=== PATIENT | male | born 1975 | race Caucasian/White ===

== ENCOUNTER 2018-09-17 10:50 | Inpatient (IN) | payer SELFPAY ==
[~2018-09-17] VITALS: Ht 182.9 cm; Wt 86.1 kg
[2018-09-17 12:03] LABS: HEMATOCRIT 49.2 % (42.0-52.0); HEMOGLOBIN 16.9 g/dl (13.5-17.5); MEAN CORPUSCULAR HEMOGLOBIN 33.3 pg (27.0-33.0); MEAN CORPUSCULAR HGB CONC 34.3 g/dl (32.0-36.5); MEAN CORPUSCULAR VOLUME 96.9 fl (80.0-96.0); PLATELET COUNT, AUTOMATED 294 10^3/uL (150-450); RED BLOOD COUNT 5.08 10^6/uL (4.30-6.10); WHITE BLOOD COUNT 10.3 10^3/uL (4.0-10.0)
[2018-09-17 12:30] LABS: ACETAMINOPHEN LEVEL < 2.0 UG/ML (10.0-30.0); ALBUMIN 3.6 GM/DL (3.2-5.2); ALT/SGPT 19 U/L (12-78); BILIRUBIN,DIRECT 0.1 MG/DL (0.0-0.2); BILIRUBIN,TOTAL 0.4 MG/DL (0.2-1.0); BLOOD UREA NITROGEN 16 MG/DL (7-18); CALCIUM LEVEL 8.6 MG/DL (8.5-10.1); CARBON DIOXIDE LEVEL 20 MEQ/L (21-32); CHLORIDE LEVEL 110 MEQ/L (98-107); CREATININE FOR GFR 0.94 MG/DL (0.70-1.30); ETHYL ALCOHOL (ETHANOL) < 0.003 % (0.000-0.010); GLOMERULAR FILTRATION RATE > 60.0 (>60); GLUCOSE, FASTING 96 MG/DL (70-100); POTASSIUM SERUM 4.1 MEQ/L (3.5-5.1); SALICYLATE LEVEL 3.8 MG/DL (5.0-30.0); SODIUM LEVEL 139 MEQ/L (136-145); TOTAL PROTEIN 7.4 GM/DL (6.4-8.2)
[2018-09-17] MEDS ORDERED: NICOTINE 21MG/24HR 1 EA TRANSDERMAL TD ONE (13:00)
[2018-09-17 14:25] LABS: AMPHETAMINES LEVEL URINE NEGATIVE (NEGATIVE); BARBITURATES URINE NEGATIVE (NEGATIVE); BENZODIAZEPINES URINE NEGATIVE (NEGATIVE); CANNABINOIDS URINE POSITIVE (NEGATIVE); COCAINE METABOLITE URINE NEGATIVE (NEGATIVE); METHADONE URINE NEGATIVE (NEGATIVE); OPIATES URINE NEGATIVE (NEGATIVE); PHENCYCLIDINE URINE NEGATIVE (NEGATIVE)
[2018-09-17] MEDS ORDERED: ALPRAZolam 0.5 MG TAB PO ONE (14:45)
[2018-09-17] MEDS ORDERED: MAALOX 30 ML SUSP *UDC PO PRN (15:45)
[2018-09-17] MEDS ORDERED: traZODone 50 MG TAB PO PRN (15:45)
[2018-09-17] MEDS ORDERED: MOM 30ML SUSPENSION UDC PO PRN (15:45)
[2018-09-17] MEDS ORDERED: ACETAMINOPHEN TAB 650MG DOSE (2X325MG) PO PRN (15:45)
[2018-09-17 17:04] VITALS: BP 130/84
[2018-09-18] MEDS: NICOTINE 21MG/24HR 1 EA TRANSDERMAL TD SCH (08:47)
--- NOTE | 2018-09-18 15:05 | MHHPEPDOC ---
General Date Of Admission: September 18, 2018 Legal Status: 9.39 Chief Complaint I am depressed and attempted to commit suicide ". History of Present Illness HISTORY OF THE PRESENT ILLNESS: Patient is a 42 -year-old , male, who has been dealing with depression his entire life and more recently, anxiety attacks.. He states he tried to get treatment over 11 years ago, but was unable to afford medications. He states that this past . His landlord told him that he had to live with other people in the landlord's family, particularly his daughter and her boyfriend and their child. He states because of this he got ill and couldn't feel firing. No solution. He said he would either have to drive away or do himself in. He states he took a cord to hang himself but called his sister.He went To his sister's house and they drove to the hospital parking lot. When home, he did not sleep. He was still anxious and called his sister saying "I need help". He states since winter where he is not been working. He has let everything go. He is becoming isolated. He has not cleaned up and has left his apartment a mess. 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 He is concerned that because he is in the hospital that he might lose his job. Lives alone and likes to be alone. However, he does go fishing with his landlord, who was in high school with him. He was educated to the 11th grade. He does not drink, but does use marijuana. His legal history is negative. He was never . No psychiatric history except what was mentioned and has never been hospitalized or remembers being on any significant medications. His medical history is negative. His neurological history is negative. His parents are not alive but he has 3 sisters and a brother. He has been waking in the middle the night since winter and feels he has hit bottom. Psychiatric Review of Systems Depression (2 or more weeks): depressed mood, anhedonia, insomnia/hypersomnia, feelings of worthlesness, decreased energy, difficulty concentrating, appetite changes, suicidal thoughts Nicky (4 or more days of): denies Psychosis: denies PTSD: denies Anxiety: panic attacks Anxiety/ 6 months or more of: difficulty concentrating, sleep disturbance Past Psychiatric History Previous Psychiatric Diagnosis: Depression Previous Psychiatric Admissions: None. Suicide Attempts:. Thoughts only. Psychiatric Follow-up: None. Psychiatric medications: None. Past Medical History Head Injury: No Seizures: No Hospitalizations: No Surgeries: No Family Medical/Psychiatric HX Psychiatric Disorders: No Addiction: No Suicide Attemps/Completions: No Addiction History denies Social History Childhood: Noncontributory. Abuse/Trauma: Noncontributory. Current Living Situation: Lives alone but we'll be getting roommates. Education: 11 grade. 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 Legal: Negative Marital:, Never . Mental Status Examination General Appearance: unkempt Build: thin Demeanor: guarded Eye Contact: average Activity: slowed Behavior: cooperative Speech: clear Mood: depressed, anxious Mood Sad Affect: constricted, flat, anxious Thought Process: logical/linear Thought Content (Delusions): none reported Thought Content (Other): none reported Thought Content (Aggressive): none reported Perception (Hallucinations): none reported Perception (Other): none reported Cognition (Impairment of): attention/concentration Cognition(Intelligence Est.): average Oriented: Oriented times three Insight: fair Judgment: Fair Psychosis: Denies Diagnoses Major depressive illness A-FIB/CHADSVASC A-FIB History Current/History of A-Fib/PAF?: No Current Oral Anticoagulant The: No Treatment Treatment ordered: NONE Initial Treatment Plan 1. Patient was admitted on a [9.39] status. 2. Complete history was obtained. 3. With patients permission, family will be contacted and database will be expanded. 4. Patients medication regimen will be reviewed and changed accordingly. 5. Patient will be provided with protected environment. 6. Patient will be treated with individual, group, and milieu therapies. 7. Patient will receive supportive psych-education. 8. Discharge planning will commence immediately. 9. Outpatient follow-up treatment will be strongly recommended. 10. The initial treatment plan will focus initially on: * Depression. * Risk for suicide. * Substance abuse. ESTIMATED LENGTH OF STAY: - DAYS. TIME SPENT COUNSELING AND COORDINATING INITIAL CARE: minutes. Vital Signs Vital Signs Date Time Temp Pulse Resp B/P (MAP) Pulse Ox O2 Delivery O2 Flow Rate FiO2 09/17/18 17:04 99.0 85 20 130/84 (99) 09/17/18 13:24 96 09/17/18 11:14 Room Air Medications No Active Prescriptions or Reported Meds Allergies Coded Allergies: No Known Allergies (Unverified , 09/17/18) YENNY RUDD MD September 18, 2018 15:01
--- NOTE | 2018-09-18 15:07 | HPEPDOC ---
General Date of Admission September 17, 2018 at 15:37 Attending Physician: MARY STANTON MD Chief Complaint The patient is a 42-year-old male admitted with a reason for visit of Depressive Disorder. History of Present Illness Patient is a 42-year-old male, patient presented to the hospital on account of feeling like he hit rock bottom. Recent activities and events in his life made him feel overwhelmed and set him over the edge. He expressed thoughts like wanting to put a noose around his neck to hang himself.. Patient was admitted on account of depression, hopelessness and helplessness. On assessment, he states he had stopped taking his antidepressant medications because to were too expensive. He reports his mother in 2004 and at that time he started having anxiety and panic attacks. He denies any prior medical history. He denies any symptoms of chest pain, shortness of breath, weakness, dizziness, nausea or vomiting Home Medications No Active Prescriptions or Reported Meds Allergies Coded Allergies: No Known Allergies (Unverified , 09/17/18) Past Medical History Medical History Depression. Anxiety Family History Parents with emphysema Social History * Smoker: greater than 1 pack/day Alcohol: Denies Drugs: marijuana Psychosocial History: Anxiety, Depression, Emotional problems A-FIB/CHADSVASC A-FIB History Current/History of A-Fib/PAF?: No Current Oral Anticoagulant The: No Review of Systems Other systems A 10 point pertinent ROS was completed, negative except as stated in the HPI Physical Examination Other physical findings GENERAL: dishevlled looking middle aged male, cachetic SKIN : Warm, dry intact HEENT: Atraumatic, normocephalic, PERRL, moist mucous membrane CARDIOVASCULAR: Regular rate and rhythm, S1S2, no JVD, no edema, distal pulses + and palpable RESP: CTAB, no accessory muscle use noted ABDOMEN: BS+ non distended non tender MS: no joint deformities NEURO: Alert and oriented x 3, CN2-12 grossly intact PSYCH: flat affect Vital Signs Vital Signs Date Time Temp Pulse Resp B/P (MAP) Pulse Ox O2 Delivery O2 Flow Rate FiO2 09/17/18 17:04 99.0 85 20 130/84 (99) 09/17/18 13:24 96 09/17/18 11:14 Room Air Assessment/Plan Suicidal ideation Polysubstance abuse Nicotine dependence Plan Evaluation and management by primary team. At this time patient has no acute medical problems or underlying comorbidities requiring active follow-up. Medical team will sign off, please re-consult as needed. Plan / VTE VTE Prophylaxis Ordered?: No VTE Exclusion Mechanical Proph: Low Risk for VTE NAILA CONWAY September 18, 2018 15:07
[2018-09-18 18:31] VITALS: BP 134/86
[2018-09-19 06:43] VITALS: BP 126/83
[2018-09-19] MEDS: NICOTINE 21MG/24HR 1 EA TRANSDERMAL TD SCH (08:34)
--- NOTE | 2018-09-19 16:09 | MHIPNPDOC ---
[facility] Progress Note Progress Note DATE OF SERVICE: 09/19/18 HISTORY: 42-year-old with severe depression. VITAL SIGNS: See below. NEW TEST RESULTS: None. CURRENT MEDICATIONS: See below. MENTAL STATUS EXAMINATION: Patient is a 42-year old male, who is, severely depressed. Speech: Is, normal. Language skills are. Normal. Thought processes including:'s sad and suicidal. Thought content:, As above. Abstract reasoning, and computation:, We'll to abstract. Description of associations: Loose. Description of abnormal or psychotic thoughts:. No psychotic thought. Judgment:, Poor. Insight:, Poor. Orientation: Full. Recent and remote memory: Intact. Attention span and concentration:. Poor. Language: As above. Fund of knowledge:full Mood: Sad. Affect:, Flat. DIAGNOSES: 1., Major depressive illness. 2., Job Stress. ASSESSMENT: 42-year-old with significant depression MANAGEMENT PLAN: Begin antidepressant treatment and counseling. TIME SPENT: 30 minutes. Vital Signs Vital Signs Date Time Temp Pulse Resp B/P (MAP) Pulse Ox O2 Delivery O2 Flow Rate FiO2 09/19/18 06:43 96.3 100 16 126/83 (97) 09/17/18 13:24 96 09/17/18 11:14 Room Air Current Medications Current Medications Acetaminophen (Tylenol Tab) 650 mg Q6HP PRN PO HEADACHE or DISCOMFORT; Start 09/17/18 at 15:45 Al Hydrox/Mg Hydrox/Simethicone (Mylanta) 30 ml Q4HP PRN PO HEARTBURN/INDIGESTION; Start 09/17/18 at 15:45 Home Med (Med Rec Complete!) ASDIRECTED XX ; Start 09/17/18 at 11:45; Stop 09/17/18 at 11:45; Status DC Magnesium Hydroxide (Milk Of Magnesia) 30 ml DAILYPRN PRN PO CONSTIPATION; Start 09/17/18 at 15:45 Nicotine (Nicoderm Cq 21mg) 1 patch DAILY TD Last administered on 09/19/18at 08:34; Start 09/18/18 at 09:00 Trazodone HCl (Desyrel) 50 mg QHSP PRN PO INSOMNIA; Start 09/17/18 at 15:45 Allergies Coded Allergies: No Known Allergies (Unverified , 09/17/18) A-FIB/CHADSVASC A-FIB History Current/History of A-Fib/PAF?: No Current Oral Anticoagulant The: No Treatment Treatment ordered: NONE YENNY RUDD MD September 19, 2018 16:09
[2018-09-19] MEDS: FLUoxetine 20 MG CAP PO SCH (16:55)
[2018-09-19 18:00] VITALS: BP 140/87
[2018-09-20 06:44] VITALS: BP 120/83
[2018-09-20] MEDS: FLUoxetine 20 MG CAP PO SCH (08:57)
[2018-09-20] MEDS: NICOTINE 21MG/24HR 1 EA TRANSDERMAL TD SCH (08:58)
--- NOTE | 2018-09-20 14:14 | MHIPNPDOC ---
[facility] Progress Note Progress Note DATE OF SERVICE: 09/20/18 HISTORY: 6 months of depression in this 42-year-old male, made worse by the winter season and being notified that he would have roommates in his apartment. VITAL SIGNS: See below. NEW TEST RESULTS:. . CURRENT MEDICATIONS: See below. MENTAL STATUS EXAMINATION: Patient is a 42-year old male, who is stating he feels significantly improved today. Speech: Is normal. Language skills are. Adequate. Thought processes including: Today feeling brighter and slept well. Thought content:. No abnormal thought content. Abstract reasoning, and computation: Able to abstract. Description of associations: Loose associations. Description of abnormal or psychotic thoughts:, No psychotic thoughts. Judgment: Fair. Insight: Fair. Orientation:, Fully oriented. Recent and remote memory:, Improving. Attention span and concentration:, Improving. Language:. No disturbance. Fund of knowledge: Full. Mood: Improved . Affect: Congruent. DIAGNOSES: 1., Major depressive illness. 2., Occupational stress. 3., Residential difficulties. ASSESSMENT:. Major depressive illness, begun on Prozac with improvement in sleep and mood as of today MANAGEMENT PLAN: As above. TIME SPENT:, 30 minutes. Vital Signs Vital Signs Date Time Temp Pulse Resp B/P (MAP) Pulse Ox O2 Delivery O2 Flow Rate FiO2 09/20/18 06:44 97.4 80 14 120/83 (95) 09/17/18 13:24 96 09/17/18 11:14 Room Air Current Medications Current Medications Acetaminophen (Tylenol Tab) 650 mg Q6HP PRN PO HEADACHE or DISCOMFORT; Start 09/17/18 at 15:45 Al Hydrox/Mg Hydrox/Simethicone (Mylanta) 30 ml Q4HP PRN PO HEARTBURN/INDIGESTION; Start 09/17/18 at 15:45 Fluoxetine HCl (PROzac) 20 mg DAILY PO Last administered on 09/20/18at 08:57; Start 09/19/18 at 17:00 Home Med (Med Rec Complete!) ASDIRECTED XX ; Start 09/17/18 at 11:45; Stop 09/17/18 at 11:45; Status DC Magnesium Hydroxide (Milk Of Magnesia) 30 ml DAILYPRN PRN PO CONSTIPATION; Start 09/17/18 at 15:45 Nicotine (Nicoderm Cq 21mg) 1 patch DAILY TD Last administered on 09/20/18at 08:58; Start 09/18/18 at 09:00 Trazodone HCl (Desyrel) 50 mg QHSP PRN PO INSOMNIA; Start 09/17/18 at 15:45 Allergies Coded Allergies: No Known Allergies (Unverified , 09/17/18) A-FIB/CHADSVASC A-FIB History Current/History of A-Fib/PAF?: No Current Oral Anticoagulant The: No Treatment Treatment ordered: NONE YENNY RUDD MD September 20, 2018 14:14
[2018-09-20 18:04] VITALS: BP 146/86
[2018-09-21 06:37] VITALS: BP 138/82
[2018-09-21] MEDS: NICOTINE 21MG/24HR 1 EA TRANSDERMAL TD SCH (08:35)
[2018-09-21] MEDS: FLUoxetine 20 MG CAP PO SCH (08:35)
--- NOTE | 2018-09-21 15:42 | MHIPNPDOC ---
[facility] Progress Note Progress Note DATE OF SERVICE: 09/21/18 HISTORY: 42-year-old man with severe depression. VITAL SIGNS: See below. NEW TEST RESULTS: None. CURRENT MEDICATIONS: See below. MENTAL STATUS EXAMINATION: Patient is a 42-year old male, who is experiencing significant improvement in socialization and mood. Speech: Is normal. Language skills are. Adequate. Thought processes including: Disturbance of thought processes. Thought content:. No abnormalities of content. Abstract reasoning, and computation:, Able to abstract. Description of associations: Loose association. Description of abnormal or psychotic thoughts:. No psychotic thought. Judgment: Improving. Insight:. Good. Orientation: Fully oriented. Recent and remote memory: Not disturbed. Attention span and concentration: Good. Language:. No difficulties. Fund of knowledge: Full. Mood: Good. Affect:, Brighter. DIAGNOSES: 1. Major depressive illness. 2., Occupational stress. . ASSESSMENT: 42-year-old male with major depression since the winter improving on present medication MANAGEMENT PLAN:. Continue observation and medication with outpatient planning. TIME SPENT: 30 minutes. Vital Signs Vital Signs Date Time Temp Pulse Resp B/P (MAP) Pulse Ox O2 Delivery O2 Flow Rate FiO2 09/21/18 06:37 97.8 65 14 138/82 (100) 09/17/18 13:24 96 09/17/18 11:14 Room Air Current Medications Current Medications Acetaminophen (Tylenol Tab) 650 mg Q6HP PRN PO HEADACHE or DISCOMFORT; Start 09/17/18 at 15:45 Al Hydrox/Mg Hydrox/Simethicone (Mylanta) 30 ml Q4HP PRN PO HEARTBURN/INDIGESTION; Start 09/17/18 at 15:45 Fluoxetine HCl (PROzac) 20 mg DAILY PO Last administered on 09/21/18at 08:35; Start 09/19/18 at 17:00 Home Med (Med Rec Complete!) ASDIRECTED XX ; Start 09/17/18 at 11:45; Stop 09/17/18 at 11:45; Status DC Magnesium Hydroxide (Milk Of Magnesia) 30 ml DAILYPRN PRN PO CONSTIPATION; Start 09/17/18 at 15:45 Nicotine (Nicoderm Cq 21mg) 1 patch DAILY TD Last administered on 09/21/18at 08:35; Start 09/18/18 at 09:00 Trazodone HCl (Desyrel) 50 mg QHSP PRN PO INSOMNIA; Start 09/17/18 at 15:45 Allergies Coded Allergies: No Known Allergies (Unverified , 09/17/18) A-FIB/CHADSVASC A-FIB History Current/History of A-Fib/PAF?: No Current Oral Anticoagulant The: No Treatment Treatment ordered: NONE YENNY RUDD MD September 21, 2018 15:42
[2018-09-21 18:00] VITALS: BP 133/82
[2018-09-22 06:49] VITALS: BP 126/79
[2018-09-22] MEDS: NICOTINE 21MG/24HR 1 EA TRANSDERMAL TD SCH (08:14)
[2018-09-22] MEDS: FLUoxetine 20 MG CAP PO SCH (08:14)
--- NOTE | 2018-09-22 14:25 | MHIPNPDOC ---
[facility] [place] Progress Note Progress Note DATE OF SERVICE: 09/22/18 HISTORY: 42-year-old male with major depression. VITAL SIGNS: See below. NEW TEST RESULTS: None. CURRENT MEDICATIONS: See below. MENTAL STATUS EXAMINATION: Patient is a 42-year old male, who is, significantly improved in mood. Speech: Is, intact. Language skills are, intact. Thought processes including:. No disturbance. Thought content:, No longer suicidal. Abstract reasoning, and computation: And able to abstract. Description of associations:. No loose association. Description of abnormal or psychotic thoughts:. No psychotic thought. Judgment: Improved. Insight: Improved. Orientation:, Intact. Recent and remote memory:, Intact. Attention span and concentration:, Improved. Language:, Intact. Fund of knowledge:, Intact. Mood: Good. Affect:, Congruent. DIAGNOSES: 1. Major depressive illness. 2., Job, and residential stress. . ASSESSMENT: 42-year-old male with significant improvement in depression MANAGEMENT PLAN:. We will begin discharge planning. TIME SPENT: 30 minutes. Vital Signs Vital Signs Date Time Temp Pulse Resp B/P (MAP) Pulse Ox O2 Delivery O2 Flow Rate FiO2 09/22/18 06:49 98.8 81 18 126/79 (95) 09/21/18 18:00 96 09/17/18 11:14 Room Air Current Medications Current Medications Acetaminophen (Tylenol Tab) 650 mg Q6HP PRN PO HEADACHE or DISCOMFORT; Start 09/17/18 at 15:45 Al Hydrox/Mg Hydrox/Simethicone (Mylanta) 30 ml Q4HP PRN PO HEARTBURN/INDIGESTION; Start 09/17/18 at 15:45 Fluoxetine HCl (PROzac) 20 mg DAILY PO Last administered on 09/22/18at 08:14; Start 09/19/18 at 17:00 Home Med (Med Rec Complete!) ASDIRECTED XX ; Start 09/17/18 at 11:45; Stop 09/17/18 at 11:45; Status DC Magnesium Hydroxide (Milk Of Magnesia) 30 ml DAILYPRN PRN PO CONSTIPATION; Start 09/17/18 at 15:45 Nicotine (Nicoderm Cq 21mg) 1 patch DAILY TD Last administered on 09/22/18at 08:14; Start 09/18/18 at 09:00 Trazodone HCl (Desyrel) 50 mg QHSP PRN PO INSOMNIA; Start 09/17/18 at 15:45 Allergies Coded Allergies: No Known Allergies (Unverified , 09/17/18) A-FIB/CHADSVASC A-FIB History Current/History of A-Fib/PAF?: No Current Oral Anticoagulant The: No Treatment Treatment ordered: NONE YENNY RUDD MD September 22, 2018 14:25
[2018-09-22 18:36] VITALS: BP 134/88
[2018-09-23 06:40] VITALS: BP 108/73
[2018-09-23] MEDS ORDERED: TRAZO50TA PO (07:34)
[2018-09-23] MEDS ORDERED: FLUO20CA19 PO (07:34)
[2018-09-23] MEDS: FLUoxetine 20 MG CAP PO SCH (08:18)
[2018-09-23] MEDS: NICOTINE 21MG/24HR 1 EA TRANSDERMAL TD SCH (08:40)
--- NOTE | 2018-09-23 17:10 | MHDSPDOC ---
[facility] Discharge Summary Discharge Summary DATE OF ADMISSION: September 17, 2018 at 15:37 DATE OF DISCHARGE: September 23, 2018 at 11:10 DISCHARGE DIAGNOSES: 1. Major depression. 2., Occupational stress. REASON FOR ADMISSION:, This 42-year-old male was depressed through the winter and became more depressed recently. 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 Patient was begun on fluoxetine 20, immediate improvement in mood. HOSPITAL COURSE:, Patient was cooperative and improved significantly in mood DISCHARGE ASSESSMENT: Major depressive illness MENTAL STATUS EXAMINATION ON DISCHARGE: Patient is a, 42-year old male, who is, improved significantly in mood and affect. Speech is normal. Language skills are. Intact. Thought processes including:. No abnormal thought processes. Thought content:. No disturbance of thought content. Abstract reasoning, and computation:, Able to abstract. Description of associations:. No loose associations. Description of abnormal or psychotic thoughts:. No psychotic thought. Judgment: Improved. Insight:, Improved. Orientation to intact 3. Recent and remote memory:. Intact. Attention span and concentration: Good. Language: As above. Fund of knowledge:. Intact. Mood: Good. Affect:, Bright. MEDICATIONS ON DISCHARGE: -, Prozac 20 for depression. -, Trazodone 50 for, insomnia. PLAN/FOLLOWUP ARRANGEMENTS: Follow-up as per [facility] discharge team. The amount of time spent in the coordination of care for this patient was approximately 30 minutes. Vital Signs/I&Os Vital Signs Date Time Temp Pulse Resp B/P (MAP) Pulse Ox O2 Delivery O2 Flow Rate FiO2 09/23/18 06:40 98.4 65 12 108/73 (85) 09/21/18 18:00 96 09/17/18 11:14 Room Air Medications Scheduled Fluoxetine Hcl (Fluoxetine HCl) 20 Mg Capsule, 20 MG PO DAILY for DEPRESSION for 10 Days, #10 Scheduled PRN Trazodone HCl (Trazodone HCl) 50 Mg Tablet, 50 MG PO QHSP PRN for INSOMNIA for 10 Days, #10 Allergies Coded Allergies: No Known Allergies (Unverified , 09/17/18) YENNY RUDD MD September 23, 2018 17:10
== END 2018-09-23 11:10 | disposition home or self-care (01) | DRG 754 ==
LOC: M ED 10:50 → M ED INP 15:37 → M PSY 16:30
PROVIDERS: ADMIT Psychiatry & Neurology Child & Adolescent Psychiatry; ATTEND Psychiatry & Neurology Child & Adolescent Psychiatry
DX: F32.9 Major depressive disorder, single episode, unspecified (principal); R45.851 Suicidal ideations; Z56.89 Other problems related to employment; F17.200 Nicotine dependence, unspecified, uncomplicated

== ENCOUNTER → 2023-01-21 | Outpatient (CLI) | payer OTHER ==
[~2023-01-21] MED LIST: FLUO20CA22 PO; TRAZ1TAB10 PO
== END ==
LOC: M PLAIMG 09:31
PROVIDERS: ATTEND Orthopaedic Surgery
DX: M54.17 Radiculopathy, lumbosacral region (principal); Z53.9 Procedure and treatment not carried out, unspecified reason

== ENCOUNTER → 2023-04-24 | Outpatient (CLI) | payer OTHER | LOC: M PLARAD 08:36 | PROVIDERS: ATTEND Orthopaedic Surgery | DX: M54.17 Radiculopathy, lumbosacral region (principal); M51.27 Other intervertebral disc displacement, lumbosacral region ==

== ENCOUNTER → 2023-07-08 | Outpatient (REF) | LOC: M CAHLAB 11:45 | PROVIDERS: ATTEND Orthopaedic Surgery | DX: Z01.83 Encounter for blood typing (principal) ==